=== PATIENT | male | born 1975 | race Two or more races ===

== ENCOUNTER 2020-04-13 09:49 | Emergency (ER) | payer OTHER ==
[~2020-04-13] VITALS: Ht 167.6 cm; Wt 81.6 kg
== END 2020-04-13 13:28 | disposition home or self-care (01) ==
LOC: ER 09:49
DX: S01.02XA Laceration with foreign body of scalp, initial encounter (principal); W18.09XA Striking against other object with subsequent fall, initial encounter; Y93.89 Activity, other specified; Y92.69 Other specified industrial and construction area as the place of occurrence of the external cause; Y99.8 Other external cause status

== ENCOUNTER → 2020-04-18 | Emergency (ER) | payer OTHER ==
[~2020-04-18] MED LIST: ALBUTEROL SULFAT4 MG PO; MONTELUKAST SOD10 MG PO; PROAIR HFA8.5 GM IH
== END | disposition left against medical advice (07) ==
LOC: ER 10:22
DX: Z53.21 Procedure and treatment not carried out due to patient leaving prior to being seen by health care provider (principal)

== ENCOUNTER 2020-04-20 13:49 | Emergency (ER) | payer OTHER ==
[~2020-04-20] VITALS: Ht 167.6 cm; Wt 81.6 kg
[2020-04-20] MEDS ORDERED: MONTELUKAST SOD10 MG PO (14:08)
[2020-04-20] MEDS ORDERED: ALBUTEROL SULFAT4 MG PO (14:08)
[2020-04-20] MEDS ORDERED: PROAIR HFA8.5 GM IH (14:08)
== END 2020-04-20 15:58 | disposition home or self-care (01) ==
LOC: ER 13:49
DX: Z48.02 Encounter for removal of sutures (principal)